=== PATIENT | female | born 1955 | race Two or more races ===

== ENCOUNTER 2022-10-07 10:21 | Inpatient (IN) | payer OTHER ==
[~2022-10-07] VITALS: Ht 167.6 cm; Wt 72.6 kg
[2022-10-08] MEDS ORDERED: SYNTHROID125 MCG PO (10:34)
[2022-10-14] MEDS ORDERED: ACETIC ACID W/H10 ML (07:56)
[2022-10-14] MEDS ORDERED: NEO-POLY-DEXAMET5 ML (07:57)
[2022-10-14] MEDS ORDERED: CETIRIZINE HCL10 MG (07:57)
== END 2022-10-16 09:41 | disposition home or self-care (01) | DRG 743 ==
LOC: O/R 10-14 05:30 → OB/GYN 10-14 05:30 → SURG 10-14 07:45 → OB/GYN 10-14 09:45 → SURG 10-14 10:00 → OB/GYN 10-16 09:41
PROVIDERS: ADMIT Obstetrics & Gynecology; ATTEND Obstetrics & Gynecology
PROC: 0UT00ZZ Resection of Right Ovary, Open Approach (ICD-10-PCS; 2022-10-14)
PROC: 0DNW0ZZ Release Peritoneum, Open Approach (ICD-10-PCS; 2022-10-14)
PROC: 0DN80ZZ Release Small Intestine, Open Approach (ICD-10-PCS; 2022-10-14)
PROC: 0TNB0ZZ Release Bladder, Open Approach (ICD-10-PCS; 2022-10-14)
PROC: 0UT50ZZ Resection of Right Fallopian Tube, Open Approach (ICD-10-PCS; principal; 2022-10-14 10:00)
DX: D27.0 Benign neoplasm of right ovary (principal); N73.6 Female pelvic peritoneal adhesions (postinfective); Z20.822 Contact with and (suspected) exposure to COVID-19